=== PATIENT | female | born 1955 | race Caucasian/White ===

== ENCOUNTER 2016-07-21 12:11 | Emergency (ER) | payer BC ==
--- NOTE | 2016-07-21 12:26 | PDOC ---
Abdomen/Flank HPI - General Chief Complaint: Abdomen Pain Stated Complaint: abdominal swelling Date Seen by Provider: 07/21/16 Time Seen by Provider: 12:26 Source: POSITIVE: Patient, Spouse Exam Limitations: POSITIVE: No limitations Nurse's Notes Reviewed & Considered: Yes - History of Present Illness Initial Comments: Chief complaint of abdominal pain patient with abdominal pain of the left upper quadrant that's been ongoing for several days getting worse today. She did have an episode of diarrhea, but denies any nausea or vomiting. She denies any fever or chills, no chest pain, shortness of breath, cough. The pain is predominantly in the region of the splenic flexure and radiates up over the inferior margin of her left thoracic cavity. Body Location Affected: REPORTS: Abdomen Timing: REPORTS: Constant, Getting Worse Duration: Unknown Severity: Moderate Quality: REPORTS: "Pain" Abdominal Pain Onset Location: REPORTS: LUQ Abdominal Pain Radiation: REPORTS: No radiation Context: REPORTS: Recent Surgery (Breast reduction and lipo-suction done recently.) Modifying Factors: improves with: Nothing Associated Symptoms: REPORTS: Diarrhea Similar Symptoms Previously: No Recent Care Received: REPORTS: Denies Any Prior Injuries Related to Current Complaint?: No - Patient Home Medications Home Medications: Home Medications Psyllium Husk [Natural Fiber] 0.52 gm PO QD cap 08/18/13 Sumatriptan Succinate [Imitrex] 1 unit PO Headache PRN #10 tab 08/18/13 Aspirin [Aspir 81] 81 mg PO DAILY tab 10/21/14 Tramadol HCl 1 tab PO BID #60 tab 06/28/15 Hydrochlorothiazide 1 tab PO QD #30 tab 09/18/15 Lisinopril 1 tab PO QD #30 tab 09/18/15 Sertraline HCl [Zoloft] 1 tab PO QHS #30 tab 09/18/15 D-Methorphan Hb/Prometh HCl [Promethazine-Dm Syrup] 5 ml PO Q4-6H #80 ml - Patient Allergies Allergies/Adverse Reactions: Allergies Allergy/AdvReac Type Severity Reaction Status Date / Time Penicillins Allergy Severe RASH Verified 07/21/16 12:21 acetaminophen [From Percocet] Allergy itch, Verified 07/21/16 12:21 feels like something under her skin amoxicillin trihydrate Allergy rash Verified 07/21/16 12:21 [From Augmentin] Antihistamines - Alkylamine Allergy anaphylaxsi Verified 07/21/16 12:21 s cyclobenzaprine HCl Allergy RASH Verified 07/21/16 12:21 [From Flexeril] hydrocodone bitartrate Allergy ITCHING Verified 07/21/16 12:21 [From Vicodin] oxycodone HCl [From Percocet] Allergy itch, Verified 07/21/16 12:21 feels like something under her skin potassium clavula Allergy rash Verified 07/21/16 12:21 *RETIRED-02/27/12 [From Augmentin] adhesive AdvReac Severe RASH Verified 07/21/16 12:21 -statins AdvReac myalgia Uncoded 07/21/16 12:21 Past Medical History - heen HEENT History: Denies History Cardiovascular History: Hypertension Respiratory History: Denies History Gastrointestinal History: Denies History Genitourinary History: Denies History Endocrine History: Denies History Musculoskeletal History: Denies History Prosthesis or Implant: No Neurological History: Denies History Blood Disorders: Denies History Psychiatric History: Depression History of Sexually Transmitted Diseases: No Obstetrical History: Delivery Cancer History: Denies History In Past Year Been Physically Harmed or Verbally Threatened: No History of MDRO: No History of Other Communicable Diseases: No Tobacco Use: Former Smoker Alcohol Use: None Substance Use Type: None Previous Surgical History: Yes Type / Date of Surgery: BREAST REDUCTION, LEFT KNEE SURGERY, X 4, HYSTERECTOMY, Significant Family History: No pertinent family hx ROS - Limitations ROS Limitations: No Limitations Constitution: REPORTS: Denies Symptoms Cardiovascular: REPORTS: Denies Cardiac Symptoms Respiratory: REPORTS: Denies Resp Symptoms Neurological: REPORTS: Denies Neuro Symptoms Gastrointestinal: REPORTS: Abdominal Pain, Diarrhea Endocrine: REPORTS: Denies Symptoms Musculoskeletal: REPORTS: Denies MS Symptoms Genitourinary: REPORTS: Denies Symptoms Eyes: REPORTS: Denies Symptoms ENT: REPORTS: Denies Symptoms Skin: REPORTS: Denies Skin Symptoms Lympathic: REPORTS: Denies Lympathic Symptoms Immunologic: POSITIVE: Denies Symptoms Psychiatric: POSITIVE: Denies Psych Symptoms Abdominal/Flank Pain PE - General Appearance General Appearance: POSITIVE: Alert, Cooperative, No Acute Distress, No Evidence of Trauma - HEENT HEENT: POSITIVE: Head Inspection Nml, Eyes Inspection Nml, Ears Inspection Nml, Nose Inspection Nml, PERRL, EOMI - Neck Neck: POSITIVE: Normal Inspection, No Apparent Injury - Respiratory Respiratory: POSITIVE: No Respiratory Distress, Breath Sounds Normal, Other ( Left costal margin and tender to palpation.) - Cardiovascular Cardiovascular: POSITIVE: Regular Rate and Rhythm, Heart Sounds Normal - Chest Chest: POSITIVE: Tender (Costal margin on the left.) - Abdomen Abdomen: Soft: (All Quadrants), Normal Bowel Sounds: (All Quadrants), No Guarding: (All Quadrants), No Rebound: (All Quadrants), Tenderness Noted: (LUQ) , Palpable Mass Noted: (LUQ) - Back Back: POSITIVE: Normal Inspection - Skin Skin: POSITIVE: Intact, Normal For Race, Warm, Dry, No Rash - Extremities Extremity: Non-Tender: (All Extremities), Normal ROM: (All Extremities), Normal Inspection: (All Extremities) - Neurological Neurological: POSITIVE: Affect Apporpriate, Oriented X3 - Psychological Psychiatric: POSITIVE: Affect Appropriate, Mood Appropriate Abdomen Progress - Results Reviewed by me Xrays/CTs/US Reviewed by me: Yes Discussed with Radiologist: Yes Lab Results Reviewed: Yes Lab Results:: Laboratory Results 07/21/16 Range/Units 12:40 WBC 6.98 (4.8-10.8) 10^3/uL RBC 4.81 (4.20-5.40) 10^6/uL Hgb 14.2 (12.0-16.0) g/dL Hct 43.8 (37.0-47.0) % MCV 91.1 (81-99) FL MCH 29.5 (27-31) PG MCHC 32.4 L (33-37) g/dL RDW Std Deviation 45.1 (39-50) fL RDW Coeff of Alfredo 13.6 (11.5-14.5) % Plt Count 231 (140-350) 10*3/uL MPV 10.3 (7.4-12.2) FL Immature Gran % (Auto) 0.1 (0-5) % Neut % (Auto) 39.3 L (50-80) % Lymph % (Auto) 47.3 (10-50) % [place] % (Auto) 8.0 (5-15) % Eos % (Auto) 4.2 (0-8) % Baso % (Auto) 1.1 H (0-1) % Immature Gran # (Auto) 0.01 10*3/UL Neut # (Auto) 2.74 10*3/UL Lymph # (Auto) 3.30 10*3/uL [place] # (Auto) 0.56 (0.3-0.8) 10*3/UL Eos # (Auto) 0.29 10*3/UL Baso # (Auto) 0.08 10*3/UL WBC Morphology Comment Normal morphology (NORM) Plt Morphology Comment Normal morphology (NORM) RBC Morph Comment Normal morphology (NORM) Sodium 139 (135-145) meq/L Potassium 3.7 L (3.8-5.2) meq/L Chloride 103 (98-112) meq/L Carbon Dioxide 26 (23-33) meq/L Anion Gap 10 (5-20) BUN 13 (7-22) mg/dL Creatinine 0.7 (0.50-1.20) mg/dL Estimated GFR > 60 (>60 ml/min/1.73m(2)) BUN/Creatinine Ratio 18.57 (6-20) Glucose 91 (78-110) mg/dL Calculated Osmolality 287.0 (267-292) mOsm/kg Calcium 11.0 H (8.7-10.7) mg/dL Magnesium 2.1 (1.6-2.4) mg/dL Total Bilirubin 0.3 (0.3-1.2) mg/dL AST 24 (8-39) IU/L ALT 34 (9-52) IU/L Alkaline Phosphatase 108 (38-126) IU/L Total Protein 6.9 (6.1-8.0) g/dL Albumin 4.3 (3.5-4.8) g/dL Globulin 2.7 (2.50-4.10) g/dL Albumin/Globulin Ratio 1.50 (1.3-2.0) mg/g - Patient's Progress Pain Medication Addressed: POSITIVE: Yes Re-examine Time: 14:34 Status: POSITIVE: Improved MDM / ED Course: Patient was examined, an IV started, blood drawn and sent to lab for studies, CT scan of abdomen and pelvis obtained. Patient received a liter of normal saline, morphine, Zofran. Findings: CT findings of abdomen and pelvis reveal no acute pathology present. There is noted to be stool in the colon consistent with constipation per my interpretation. CBC shows white count elevated to just over 12. Assessment: #1 abdominal pain most likely related to constipation. #2 right renal cyst. #3. Granulomas of the spleen. Plan: Discharge home, glycerin suppository, consider mag citrate. Follow-up with primary care physician. - Consult Counseled: POSITIVE: Patient, Family, RE: Lab Results, RE: Radiology Results, RE : DX, RE: Need for F/U Patient Care Time - Estimated PCT Patient Care Time (In Minutes): 30 Vital Signs - Recent Vital Signs Vital Signs: Vital Signs (Last 8 hours) Temp Pulse Resp BP Pulse Ox 07/21/16 12:26 96.7 F L 71 20 137/104 94 - VS Reviewed Vital Signs Reviewed: Yes Discharge Clinical Impression: Abdominal pain Discharge Disposition: Discharged to Home Condition: Stable Patient Instructions Given at Discharge: Acute Abdominal Pain (ED), Constipation (ED), High Fiber Diet (ED)
[2016-07-21] MEDS ORDERED: MORPHINE SULFATE 4 MG/1 ML IVP ONE (12:28)
[2016-07-21] MEDS ORDERED: ONDANSETRON 4 MG/2 ML VIAL IVP ONE (12:28)
[2016-07-21] MEDS ORDERED: Sodium Chloride 0.9% 1,000 ML PRIMARY IV ONE (12:28)
[2016-07-21 12:53] LABS: BASOPHILS # (AUTO) 0.08 10*3/UL; BASOPHILS % (AUTO) 1.1 % (0-1); EOSINOPHILS % (AUTO) 4.2 % (0-8); HEMATOCRIT 43.8 % (37.0-47.0); HEMOGLOBIN 14.2 g/dL (12.0-16.0); IMM GRAN % (AUTO) 0.1 % (0-5); IMM GRAN# (AUTO) 0.01 10*3/UL; LYMPHOCYTES % (AUTO) 47.3 % (10-50); MEAN CORPUSCULAR HEMOGLOBIN 29.5 PG (27-31); MEAN CORPUSCULAR HGB CONC 32.4 g/dL (33-37); MEAN PLATELET VOLUME 10.3 FL (7.4-12.2); MONOCYTES # (AUTO) 0.56 10*3/UL (0.3-0.8); NEUTROPHILS # (AUTO) 2.74 10*3/UL; NEUTROPHILS % (AUTO) 39.3 % (50-80); RDW COEFFICIENT OF VARIATION 13.6 % (11.5-14.5); RED BLOOD COUNT 4.81 10^6/uL (4.20-5.40); WHITE BLOOD COUNT 6.98 10^3/uL (4.8-10.8)
[2016-07-21 13:03] LABS: ASPARTATE AMINO TRANSFERASE 24 IU/L (8-39); BILIRUBIN,TOTAL 0.3 mg/dL (0.3-1.2); BLOOD UREA NITROGEN 13 mg/dL (7-22); BUN/CREATININE RATIO 18.57 (6-20); CHLORIDE 103 meq/L (98-112); CREATININE 0.7 mg/dL (0.50-1.20); EST GLOMERULAR FILTRATION > 60 (>60 ml/min/1.73m(2)); GLUCOSE 91 mg/dL (78-110); MAGNESIUM 2.1 mg/dL (1.6-2.4); PLATELET MORPHOLOGY COMMENT NORMAL MORPHOLOGY (NORM); POTASSIUM 3.7 meq/L (3.8-5.2); SODIUM 139 meq/L (135-145); TOTAL PROTEIN 6.9 g/dL (6.1-8.0)
[2016-07-21 13:44] VITALS: TEMP 96.7
--- NOTE | 2016-07-21 14:20 | DI ---
HISTORY: Abdominal pain; increasing left-sided pain since breast reduction (05/24/2016). COMPARISON: None available. TECHNIQUE: Contiguous 5 mm axial images were obtained from the upper abdomen through the pelvis afte r administration of IV contrast. 382 images. FINDINGS: LUNG BASE: There is minimal bilateral dependent atelectasis. No evidence of mass or focal airspace consolidation. No pleural effusions. Coronary artery calcifications are present. ABDOMEN: The liver is diffusely hypoattenuating. No liver masses seen. Minimal layering hyperdensi ty seen in the gallbladder lumen, likely biliary sludge. Multiple punctate splenic granuloma are pre sent. The gallbladder and spleen are otherwise unremarkable. Pancreas and adrenal glands appear nor mal. Normal appearing small bowel. No pericolonic or small bowel mesenteric inflammatory fat stranding. Normal appendix with no secondary signs of appendicitis. No evidence of pneumoperitoneum, free fluid or of peritoneal abscess. The right and left kidney are unremarkable. A 3.5 cm simple renal cyst is present in the lower pole of the right kidney. No evidence of obstructive uropathy. PELVIS: No suspicious pelvic or abdominal adenopathy. VESSELS: Mild calcified aortoiliac atherosclerotic vascular disease is present without evidence of a neurysmal dilation. MUSCULOSKELETAL: Bone mineralization is normal. No evidence of acute fracture or spinal canal steno sis. Mild grade 1 degenerative anterolisthesis of L4 on L5 is present secondary to bulky facet arthr osis. Degenerative facets are also present at L3/L4 and L5/S1. Pubic symphysis arthrosis is also se en. IMPRESSION: 1. No evidence of acute pathology. 2. Hepatic steatosis. 3. Moderate lumbosacral spondylosis at L3-S1 without evidence of canal stenosis.
[2016-07-21] MEDS ORDERED: GLYCERIN SUPPOSITORY RECTAL ONE (14:33)
[2016-07-21 15:18] VITALS: RESP 18
== END 2016-07-21 15:14 | disposition home or self-care (01) ==
LOC: ER 12:11
DX: R10.12 Left upper quadrant pain (principal); N28.1 Cyst of kidney, acquired
CPT/HCPCS: 74177; 80053; 83735; 85025; 86304; 96361; 96374; 96375; 99283; J2270; J2405; J7030

== ENCOUNTER → 2016-11-27 | Outpatient (CLI) | payer BC ==
[2016-11-27 08:31] LABS: BASOPHILS # (AUTO) 0.08 10*3/UL; BASOPHILS % (AUTO) 1.1 % (0-1); EOSINOPHILS # (AUTO) 0.23 10*3/UL; EOSINOPHILS % (AUTO) 3.2 % (0-8); HEMATOCRIT 46.1 % (37.0-47.0); HEMOGLOBIN 15.1 g/dL (12.0-16.0); LYMPHOCYTES # (AUTO) 2.75 10*3/uL; MEAN CORPUSCULAR HEMOGLOBIN 29.2 PG (27-31); MEAN CORPUSCULAR HGB CONC 32.8 g/dL (33-37); MEAN PLATELET VOLUME 10.6 FL (7.4-12.2); MONOCYTES # (AUTO) 0.54 10*3/UL (0.3-0.8); MONOCYTES % (AUTO) 7.6 % (5-15); NEUTROPHILS # (AUTO) 3.47 10*3/UL; NEUTROPHILS % (AUTO) 49.2 % (50-80); RED BLOOD COUNT 5.18 10^6/uL (4.20-5.40)
[2016-11-27 08:43] LABS: BLOOD UREA NITROGEN 17 mg/dL (7-22); BUN/CREATININE RATIO 24.28 (6-20); CALCIUM 11.1 mg/dL (8.7-10.7); EST GLOMERULAR FILTRATION > 60 (>60 ml/min/1.73m(2))
[2016-11-27 08:47] LABS: PLATELET MORPHOLOGY COMMENT NORMAL MORPHOLOGY (NORM); RBC MORPHOLOGY COMMENT NORMAL MORPHOLOGY (NORM); WBC MORPHOLOGY COMMENT NORMAL MORPHOLOGY (NORM)
== END ==
LOC: LAB 08:18
PROVIDERS: ATTEND Physician Assistant Medical
DX: R42 Dizziness and giddiness (principal); I10 Essential (primary) hypertension; R94.6 Abnormal results of thyroid function studies
CPT/HCPCS: 36415; 80048; 84443; 85025